=== PATIENT | male | born 1950 | race Caucasian/White ===

== ENCOUNTER 2017-03-08 09:26 | Outpatient (RCR) | payer MEDICARE, OTHER ==
[~2017-03-08 09:26] MED LIST: ACIPHEX; ASP81CT PO; ATR20T PO; HYDROCHLORATHIAZIDE; TRHC5025; TRIAMTERENE
--- NOTE | 2017-03-08 11:11 | Diagnostic Imaging Report ---
EXAM: KUB. INDICATION: Stones. COMPARISON: 02/22/2016. FINDINGS: There are bilateral flank calcifications up to 7 mm on the right and up to 5 mm on the left side suggestive of kidney stones. Pelvic calcifications are likely phleboliths. A moderate amount of fecal material is seen in the colon. Surgical clips in the upright abdomen seen. IMPRESSION: Bilateral flank calcifications may relate to stones. Dictated by: Dictated on workstation # [id number]
[2017-03-18 20:39] LABS: STONE RISK AMMONIUM 30 mEq/24hr (14-62); STONE RISK BRUSHITE 1.68 (< 2.00); STONE RISK CA OXALATE 0.72 (< 2.00); STONE RISK CALCIUM 96 mg/day (< 250); STONE RISK CITRATE 464 mg/day (> 320); STONE RISK CREATININE 1339 mg/day (800-2000); STONE RISK MAGNESIUM 110 mg/day (> 60); STONE RISK OXALATE 28 mg/day (< 45); STONE RISK PH 6.8 (5.5-7.0); STONE RISK PHOSPHOROUS 911 mg/day (< 1100); STONE RISK POTASSIUM 40 mEq/24hr (19-135); STONE RISK SODIUM 144 mEq/24hr (< 200); STONE RISK SODIUM URATES 1.73 (< 2.00); STONE RISK STRUVITE 7.32 (< 75.00); STONE RISK SULFITE 10 mmol/day (< 30); STONE RISK TOTAL VOLUME 1.84 L/day (> 2.00); STONE RISK URIC ACID 475 mg/day (< 700)
[2017-03-19 07:23] LABS: STONE RISK PATIENT CONDITION Low urine volume
[2017-03-25] MEDS ORDERED: TRIA1CAP4 PO (09:49)
[2017-03-26] MEDS ORDERED: NITR-68 PO (09:33)
[2017-03-26] MEDS ORDERED: TAMS0.4C98 PO (09:33)
[2017-03-26] MEDS ORDERED: HYDR-3874 PO (09:33)
== END 2017-06-06 | disposition home or self-care (01) ==
LOC: RAD 09:26
PROVIDERS: ATTEND Urology
DX: N20.0 Calculus of kidney (principal)
CPT/HCPCS: 36415; 74000; 82140; 82340; 82507; 82570; 83735; 83945; 83986; 84105; 84133; 84300; 84392; 84560

== ENCOUNTER 2017-03-25 05:35 | Outpatient (CLI) | payer MEDICARE, OTHER ==
[~2017-03-25] VITALS: Ht 180.3 cm; Wt 79.4 kg
[2017-03-25] MEDS ORDERED: TRIA1CAP4 PO (09:49)
[2017-03-26] MEDS ORDERED: NITR-68 PO (09:33)
[2017-03-26] MEDS ORDERED: TAMS0.4C98 PO (09:33)
[2017-03-26] MEDS ORDERED: HYDR-3874 PO (09:33)
== END 2017-03-25 09:52 ==
LOC: PREOP 05:35
PROVIDERS: ATTEND Urology
DX: Z01.818 Encounter for other preprocedural examination (principal); N20.0 Calculus of kidney

== ENCOUNTER 2017-03-26 05:57 | Day surgery (SDC) | payer MEDICARE, OTHER ==
[~2017-03-26] VITALS: Ht 180.3 cm; Wt 79.4 kg
[~2017-03-26 05:57] MED LIST changes: +TRIA1CAP4 PO
[2017-03-26] MEDS ORDERED: LEVOFLOXACIN 250 MG/50 ML IVPB 50 ML ONE (06:12)
[2017-03-26] MEDS ORDERED: LACTATED RINGERS 1,000 ML IV PRN (06:20)
[2017-03-26 06:26] VITALS: BP 138/86
[2017-03-26] MEDS ORDERED: LIDOCAINE PF 2% 10 ML (XYLOCAINE) AMP ONE (06:29)
[2017-03-26] MEDS ORDERED: LIDOCAINE JELLY 2% (XYLOCAINE) 5 ML TUBE ONE (06:29)
[2017-03-26] MEDS ORDERED: ROCURONIUM 50 MG/5 ML (ZEMURON) VIAL IV ONE (06:29)
[2017-03-26] MEDS ORDERED: proPOfol 200 MG/20 ML (DIPRIVAN) VIAL IV ONE (06:29)
[2017-03-26] MEDS ORDERED: MIDAZOLAM 2 MG/2 ML (VERSED) VIAL ONE (06:30)
[2017-03-26] MEDS ORDERED: FAMOTIDINE 20MG/2ML IV (PEPCID) IV ONE (06:30)
[2017-03-26] MEDS ORDERED: fentaNYL INJECTION 100 MCG/2 ML AMP ONE (06:30)
[2017-03-26] MEDS ORDERED: ONDANSETRON 4 MG/2 ML (SDV) Z0FRAN IV ONE (06:30)
--- NOTE | 2017-03-26 07:00 | Progress Note-Pre Operative ---
Pre-Operative Progress Note H&P Reviewed The H&P was reviewed, patient examined and no changes noted. Date H&P Reviewed: March 26, 2017 Time H&P Reviewed: 07:00 Pre-Operative Diagnosis: bilateral renal stones KATLYN TANNER MD March 26, 2017 7:00 am
--- NOTE | 2017-03-26 07:02 | Progress Note-Post Operative ---
Post-Operative Progess Note Surgeon (s)/Teacher Industrial Arts (s) Surgeon KATLYN TANNER MD Teacher Industrial Arts: N/A Pre-Operative Diagnosis bilateral renal stones Post-Operative Diagnosis SAME Procedure & Operative Findings Date of Procedure 03/26/17 Procedure Preformed/Findings RT ESWL Anesthesia Type GENERAL Estimated Blood Loss Estimated blood loss (mL): N/A Specimens/Packing Specimens Removed N/A Packing: N/A KATLYN TANNER MD March 26, 2017 7:02 am
--- NOTE | 2017-03-26 07:03 | Discharge Inst-Urology ---
Discharge Inst-Urology Discharge Medications New, Converted, or Re-newed RX: RX on Chart Patient Instructions/Follow Up Plan Please make appointment to been seen in office Sunday 04/08, KUB prior to it KUB on way home Post ESWL instructions Increase oral fluids for 48 hours and then as needed. Diet and Activity as tolerated. If questions or concerns contact your physician Or seek help at emergency department. KATLYN TANNER MD March 26, 2017 7:03 am
[2017-03-26] MEDS ORDERED: LEVOFLOXACIN 250 MG/D5W 50 ML (PRE-MIX) IV ONE (07:15)
[2017-03-26] MEDS ORDERED: CATHETER FLUSH 10 ML SYR IV PRN (07:15)
--- NOTE | 2017-03-26 07:25 | Diagnostic Imaging Report ---
INDICATION: Renal calculi. COMPARISON: 03/08/2017. FINDINGS: Bilateral ureteral calculi are unchanged. The largest on the right again measures approximately 6 mm. There are 3 in the region of the left renal fossa, each measuring approximately 4 mm in size. No evidence of ureteral calculi. Stable pelvic phleboliths. Nonobstructive bowel gas pattern and small volume of colonic stool. Lung bases are clear. IMPRESSION: Compared to the abdominal radiograph of 03/08/2017, unchanged bilateral renal calculi. Dictated by: Dictated on workstation # [id number]
[2017-03-26] MEDS ORDERED: morphine INJ 10 MG/ML 1ML (SYR OR VIAL) IVP PRN (08:15)
[2017-03-26] MEDS ORDERED: MEPERIDINE (DEMEROL) INJ 50 MG/ML IVP PRN (08:15)
[2017-03-26] MEDS ORDERED: ONDANSETRON 4 MG/2 ML (SDV) Z0FRAN IVP PRN (08:15)
[2017-03-26] MEDS ORDERED: SEVOFLURANE (ULTANE) 15 ML INHAL SOLN ONE (08:27)
[2017-03-26] MEDS ORDERED: KETOROLAC 30 MG/ML VIAL ONE (08:27)
[2017-03-26] MEDS ORDERED: FUROSEMIDE 40 MG/4 ML INJ (LASIX) ONE (08:27)
[2017-03-26 09:00] VITALS: BP 132/78
[2017-03-26 09:30] VITALS: BP 119/76
--- NOTE | 2017-03-26 09:30 | OPERATIVE REPORT ---
DATE OF SERVICE: 03/26/2017 PREOPERATIVE DIAGNOSIS: Bilateral renal stones. POSTOPERATIVE DIAGNOSIS: Bilateral renal stones. OPERATION PERFORMED: Right extracorporeal shockwave lithotripsy. SURGEON: Vik Tanner MD ANESTHESIA: General. COMPLICATIONS: None. PROCEDURE: Under satisfactory anesthesia, the patient was placed in the supine position on the ESWL table. Right renal stone was localized. Shocks were delivered at of 5. A total of 2000 shocks completely the stone, it was not visible any more. The patient received 30 mg of Toradol and 40 mg of Lasix IV at the end of the procedure. He tolerated the procedure and anesthesia well and was taken to the recovery room in stable condition. Job ID: [id number] DocumentID: [id number] Dictated Date: 03/26/2017 07:53:58 Governor Assembler Date: 03/26/2017 09:29:47 Dictated By: VIK TANNER MD
[2017-03-26] MEDS ORDERED: NITR-68 PO (09:33)
[2017-03-26] MEDS ORDERED: HYDR-3874 PO (09:33)
[2017-03-26] MEDS ORDERED: TAMS0.4C98 PO (09:33)
[2017-03-26 10:00] VITALS: BP 114/77
[2017-03-26 10:15] VITALS: BP 114/77
--- NOTE | 2017-03-26 11:42 | Diagnostic Imaging Report ---
EXAMINATION: KUB. INDICATION: Post lithotripsy. Bilateral kidney stones. FINDINGS: There is a fragmented stone seen in the right kidney with inseparable fragments measuring up to 1 cm in size. The left kidney calcifications are again noted up to 4 mm in size. There is no definite ureteric stone. Pelvic calcifications are likely phleboliths. There are surgical clips in the upper right side of the abdomen. IMPRESSION: Bilateral kidney stones. Dictated by: Dictated on workstation # [id number]
== END 2017-03-26 10:15 | disposition home or self-care (01) ==
LOC: SDC 05:57
PROVIDERS: ATTEND Urology
DX: N20.0 Calculus of kidney (principal); E78.00 Pure hypercholesterolemia, unspecified; K21.9 Gastro-esophageal reflux disease without esophagitis; Z79.899 Other long term (current) drug therapy
CPT/HCPCS: 74000; 87081

== ENCOUNTER → 2017-04-08 | Outpatient (CLI) | payer MEDICARE, OTHER ==
[~2017-04-08] MED LIST changes: +HYDR-3874 PO; +NITR-68 PO; +TAMS0.4C98 PO
--- NOTE | 2017-04-08 13:38 | Diagnostic Imaging Report ---
KUB. INDICATION: Bilateral renal stones. FINDINGS: Again seen multiple calcifications in the left flank up to 5 mm in size compatible with left kidney stones. The previously seen 1 cm stone fragment in the right kidney is not seen at this time with the remaining 3 mm stone in the right kidney. No definite right ureteric stone is identified. Pelvic calcifications seen are likely phleboliths. IMPRESSION: Bilateral kidney stones. Dictated by: Dictated on workstation # [id number]
== END ==
LOC: RAD 10:33
PROVIDERS: ATTEND Urology
DX: N20.0 Calculus of kidney (principal); Z98.890 Other specified postprocedural states
CPT/HCPCS: 74000

== ENCOUNTER 2017-06-11 05:41 | Outpatient (CLI) | payer MEDICARE, OTHER ==
[~2017-06-11] VITALS: Ht 180.3 cm; Wt 79.4 kg
== END 2017-06-11 13:15 ==
LOC: PREOP 05:41
PROVIDERS: ATTEND Urology
DX: Z01.818 Encounter for other preprocedural examination (principal); K02.9 Dental caries, unspecified

== ENCOUNTER 2017-06-18 07:09 | Day surgery (SDC) | payer MEDICARE, OTHER ==
[~2017-06-18] VITALS: Ht 180.3 cm; Wt 79.4 kg
[2017-06-18] MEDS ORDERED: LEVOFLOXACIN 250 MG/50 ML IVPB 50 ML ONE (07:18)
[2017-06-18] MEDS ORDERED: CATHETER FLUSH 10 ML SYR IV PRN (07:45)
[2017-06-18] MEDS ORDERED: LEVOFLOXACIN 250 MG/D5W 50 ML (PRE-MIX) IV ONE (07:45)
[2017-06-18 07:54] VITALS: BP 142/83
[2017-06-18] MEDS ORDERED: ASPI-586 PO (07:57)
[2017-06-18] MEDS ORDERED: fentaNYL INJECTION 100 MCG/2 ML AMP ONE (08:19)
[2017-06-18] MEDS ORDERED: MIDAZOLAM 2 MG/2 ML (VERSED) VIAL ONE (08:19)
[2017-06-18] MEDS ORDERED: proPOfol 200 MG/20 ML (DIPRIVAN) VIAL IV ONE (08:19)
[2017-06-18] MEDS ORDERED: LACTATED RINGERS 1,000 ML IV PRN (08:21)
--- NOTE | 2017-06-18 08:22 | Diagnostic Imaging Report ---
Supine view of the abdomen. INDICATION: Stones. FINDINGS: There is a 5 mm and other smaller calcifications over the left flank probably in the left kidney. There are multiple pelvic calcifications likely related to phleboliths. One calcification measuring 1.5 mm is seen in the right side of the pelvis not present on 04/08/17 exam. This could correlate with right UVJ stone. Surgical clips in the upright abdomen seen. IMPRESSION: 1. Findings suggestive of left kidney stones. 2. A 1.5 mm calcification in the right side of the pelvis is new from the prior exam and may correlate with a right UVJ stone. Dictated by: Dictated on workstation # [id number]
--- NOTE | 2017-06-18 08:27 | Progress Note-Pre Operative ---
Pre-Operative Progress Note H&P Reviewed The H&P was reviewed, patient examined and no changes noted. Date Seen by Provider: Jun 18, 2017 Time Seen by Provider: 08:26 Date H&P Reviewed: Jun 18, 2017 Time H&P Reviewed: 08:27 Pre-Operative Diagnosis: LT RENAL STONES KATLYN TANNER MD Jun 18, 2017 8:27 am
[2017-06-18] MEDS ORDERED: SCOPOLAMINE 1.5 MG (TRANSDERM-SCOP) PATCH TOP ONE (08:30)
[2017-06-18] MEDS ORDERED: ONDANSETRON 4 MG/2 ML (SDV) Z0FRAN IV ONE (08:30)
[2017-06-18] MEDS ORDERED: FAMOTIDINE 20MG/2ML IV (PEPCID) IV ONE (08:30)
--- NOTE | 2017-06-18 09:29 | Progress Note-Post Operative ---
Post-Operative Progess Note Surgeon (s)/Director Of Materials (s) Surgeon KATLYN TANNER MD Director Of Materials: N/A Pre-Operative Diagnosis LT RENAL STONES Post-Operative Diagnosis SAME Procedure & Operative Findings Date of Procedure 06/18/17 Procedure Performed/Findings LT ESWL Anesthesia Type GENERAL Estimated Blood Loss Estimated blood loss (mL): N/A Specimens/Packing Specimens Removed N/A Packing: N/A KATLYN TANNER MD Jun 18, 2017 9:29 am
[2017-06-18] MEDS ORDERED: LACTATED RINGERS 2,000 ML IV ONE (09:32)
[2017-06-18] MEDS ORDERED: SEVOFLURANE (ULTANE) 15 ML INHAL SOLN ONE (09:32)
[2017-06-18] MEDS ORDERED: FUROSEMIDE 40 MG/4 ML INJ (LASIX) ONE (09:32)
--- NOTE | 2017-06-18 09:32 | Discharge Inst-Urology ---
Discharge Inst-Urology Discharge Medications New, Converted, or Re-newed RX: RX on Chart Patient Instructions/Follow Up Plan Please make appointment to been seen in office in 2 weeks. KUB prior to it Post ESWL instructions In 72hrs. if no bleeding may resume ASA Increase oral fluids for 48 hours and then as needed. Diet and Activity as tolerated. If questions or concerns contact your physician Or seek help at emergency department. KATLYN TANNER MD Jun 18, 2017 9:32 am
[2017-06-18 10:30] VITALS: BP 131/79
[2017-06-18] MEDS ORDERED: TAMS0.4C98 PO (10:51)
[2017-06-18] MEDS ORDERED: HYDR-3875 PO (10:51)
[2017-06-18] MEDS ORDERED: NITR-65 PO (10:51)
[2017-06-18 11:00] VITALS: BP 130/80
[2017-06-18 11:30] VITALS: BP 131/81
--- NOTE | 2017-06-18 11:36 | Diagnostic Imaging Report ---
Supine view of the abdomen. INDICATION: Renal stones. FINDINGS: There are multiple left flank calcifications in the left flank. They measure up to 5 mm in size. Multiple pelvic calcifications are seen, likely phleboliths. IMPRESSION: Multiple left flank calcifications, likely left kidney stones. Dictated by: Dictated on workstation # [id number]
[2017-06-18 12:00] VITALS: BP 131/81
--- NOTE | 2017-06-18 14:50 | OPERATIVE REPORT ---
PROCEDURE PHYSICIAN: KATLYN TANNER DATE OF PROCEDURE: 06/18/2017 PREOPERATIVE DIAGNOSIS: Left renal stones. POSTOPERATIVE DIAGNOSIS: Left renal stones. OPERATION: Left ESWL. SURGEON: Dr. Tanner. ANESTHESIA: General. COMPLICATIONS: None. PROCEDURE: Under satisfactory general anesthesia, the patient in supine position on the ESWL table, the left renal stone, not the small one, 5 mm was localized. Shocks were delivered KV of 5. A total of 2000 shocks completely fragmented the stone which was hard to see. The patient received 40 mg of Lasix and 30 mg of Toradol IV at the end of the procedure. He tolerated the procedure and anesthesia well and was sent to recovery room in stable condition. Job ID: [id number] Dictated Date: 06/18/2017 09:41:42 Locker Attendant Date: 06/18/2017 14:43:22 / mike
== END 2017-06-18 12:00 | disposition home or self-care (01) ==
LOC: SDC 07:09
PROVIDERS: ATTEND Urology
DX: N20.0 Calculus of kidney (principal); E78.00 Pure hypercholesterolemia, unspecified; K21.9 Gastro-esophageal reflux disease without esophagitis; Z79.899 Other long term (current) drug therapy
CPT/HCPCS: 74000; 87081

== ENCOUNTER → 2017-07-08 | Outpatient (CLI) | payer MEDICARE, OTHER ==
[~2017-07-08] MED LIST changes: +ASPI-586 PO; +HYDR-3875 PO; +NITR-65 PO
--- NOTE | 2017-07-08 12:36 | Diagnostic Imaging Report ---
INDICATION: Kidney stones. COMPARISON: 06/18/17. FINDINGS: Two views of the abdomen demonstrate multiple unchanged stones in the left kidney. The largest in the upper pole measures 5 mm. No stones are seen on the right nor in the ureter courses. No calculus is seen within urinary bladder. IMPRESSION: Stable left kidney stones. No interval change. Dictated by: Dictated on workstation # [id number]
== END ==
LOC: RAD 11:51
PROVIDERS: ATTEND Urology
DX: N20.0 Calculus of kidney (principal)
CPT/HCPCS: 74000

== ENCOUNTER 2017-07-25 10:55 | Emergency (ER) | payer MEDICARE, OTHER ==
[~2017-07-25] VITALS: Ht 180.3 cm; Wt 79.4 kg
[2017-07-25] MEDS ORDERED: NS IV 1000 ML 1,000 ML IV ONE (12:15)
[2017-07-25 12:21] LABS: BASOPHILS % (AUTO) 0 % (0-10); EOSINOPHILS # (AUTO) 0.1 10^3/uL (0.0-0.3); EOSINOPHILS % (AUTO) 2 % (0-10); LYMPHOCYTES # (AUTO) 1.2 X 10^3 (1.0-4.0); LYMPHOCYTES % (AUTO) 21 % (12-44); MEAN CORPUSCULAR HEMOGLOBIN 28 PG (25-34); MEAN CORPUSCULAR HGB CONC 33 G/DL (32-36); MEAN CORPUSCULAR VOLUME 85 FL (80-99); MEAN PLATELET VOLUME 10.7 FL (7.4-10.4); MONOCYTES # (AUTO) 0.4 X 10^3 (0.0-1.0); MONOCYTES % (AUTO) 7 % (0-12); NEUTROPHILS # (AUTO) 3.9 X 10^3 (1.8-7.8); NEUTROPHILS % (AUTO) 70 % (42-75); PLATELET COUNT 182 10^3/uL (130-400); RED BLOOD COUNT 5.46 10^6/uL (4.35-5.85); RED CELL DISTRIBUTION WIDTH 14.3 % (10.0-14.5); WHITE BLOOD COUNT 5.6 10^3/uL (4.3-11.0)
[2017-07-25 12:22] LABS: BILIRUBIN,URINE NEGATIVE (NEGATIVE); KETONES,URINE NEGATIVE (NEGATIVE); LEUKOCYTE ESTERASE ,URINE NEGATIVE (NEGATIVE); NITRITE,URINE NEGATIVE (NEGATIVE); PH,URINE 6 (5-9); PROTEIN,URINE 1+ (NEGATIVE); UROBILINOGEN,URINE NORMAL (NORMAL)
[2017-07-25 12:31] LABS: SQUAMOUS EPITHELIAL CELL,UR RARE /HPF
[2017-07-25 12:38] LABS: ALANINE AMINOTRANSFERASE 22 U/L (0-55); ALBUMIN 4.4 GM/DL (3.2-4.5); ANION GAP 11 MMOL/L (5-14); ASPARTATE AMINO TRANSFERASE 24 U/L (5-34); BILIRUBIN,TOTAL 0.8 MG/DL (0.1-1.0); BLOOD UREA NITROGEN 16 MG/DL (7-18); BUN/CREATININE RATIO 15; CALCIUM 9.7 MG/DL (8.5-10.1); CARBON DIOXIDE 24 MMOL/L (21-32); CHLORIDE 105 MMOL/L (98-107); CREATININE SERUM 1.06 MG/DL (0.60-1.30); GFR ESTIMATED > 60; GLUCOSE 103 MG/DL (70-105); POTASSIUM 3.7 MMOL/L (3.6-5.0); SODIUM 140 MMOL/L (135-145); TOTAL PROTEIN 7.4 GM/DL (6.4-8.2)
[2017-07-25] MEDS ORDERED: morphine INJ 10 MG/ML 1ML (SYR OR VIAL) IVP STA (12:38)
--- NOTE | 2017-07-25 13:11 | Diagnostic Imaging Report ---
PROCEDURE: CT urinary tract, rule out kidney stone. TECHNIQUE: Multiple contiguous axial images were obtained through the abdomen and pelvis without the use of intravenous contrast. INDICATION: Left flank pain. COMPARISON: None available. FINDINGS: Evaluation of the abdominal viscera is mildly limited without contrast. Lower chest: The lung bases are clear. No pericardial or pleural effusion. Peritoneum: No free intraperitoneal air or fluid. Liver and biliary system: Unenhanced liver is normal. Status post cholecystectomy. No biliary duct dilatation. Spleen and Pancreas: Spleen is normal. Unenhanced pancreas is grossly normal. Adrenals: Normal. tract: There is a 4-mm calculus at the left UVJ which results in very mild left hydroureter distally; however, there is no left hydronephrosis or proximal hydroureter. Bilateral nonobstructing renal calculi are present. The largest is on the left measuring 5 mm. The largest on the right measures 3 mm. Urinary bladder is normally distended without wall thickening. Prostate is borderline enlarged measuring 5 cm transversely. GI tract: Stomach is partially distended with fluid and food debris. There is no gastric wall thickening. No bowel obstruction. No pericolonic inflammatory changes. Normal appendix. Vasculature and Lymph nodes: Normal-caliber aorta with multifocal atherosclerotic calcified plaque. No abdominal or pelvic lymphadenopathy. Musculoskeletal: No concerning osseous lesion. IMPRESSION: 1. There is a 4-mm calculus at the left UVJ which likely is due to a recently passed or nearly passed left-sided stone. This results in minimal left hydroureter distally but no hydronephrosis. 2. Bilateral nonobstructing renal calculi measuring up to 5 mm. 3. Borderline prostatomegaly. Dictated by: Dictated on workstation # [id number]
--- NOTE | 2017-07-25 13:30 | ED GU-Male ---
General Chief Complaint: Abdominal/GI Problems Stated Complaint: POSS KID STONES Nursing Triage Note: pt reports pain in l side and pelvic area x 3 days. pt also reports pressure/fullness in lower abdomen and states he has only been able to urinate a little amount at a time. History of Present Illness Time seen by provider: 12:15 Initial Comments Evaluation for left flank pain. The patient has long-standing history of renal calculi. He was treated earlier in June by Dr. Tanner, patient reports he is having difficulty urinating. He is going small amounts frequently. Timing/Duration: intermittent Severity/Quality: moderate Location: suprapubic, left flank Radiation: none Activities at Onset: none Prior Genitourinary Problems: similar symptoms Modifying Factors: Improves With Resting, Improves With Urinating Associated Symptoms: denies symptoms Allergies and Home Medications Allergies Coded Allergies: Sulfa (Sulfonamide Antibiotics) (Verified Allergy, Unknown, 11/27/06) Home Medications Atorvastatin 20 Mg Tablet, 20 MG PO DAILY, (Reported) Hydrocodone/Acetaminophen 1 Each Tablet, 1-2 TAB PO Q4H PRN for PAIN-MODERATE, # 30 Prescribed by: BRADLEY JEAN on 06/18/17 1051 Nitrofurantoin Monohyd/M-Cryst 100 Mg Capsule, 1 TAB PO BID, #14 Prescribed by: BRADLEY JEAN on 06/18/17 1051 Tamsulosin HCl 0.4 Mg Cap, 0.4 MG PO DAILY, #14 Prescribed by: BRADLEY JEAN on 06/18/17 1051 Triamterene/Hydrochlorothiazid 1 Each Capsule, 1 EACH PO DAILY, (Reported) Constitutional: no symptoms reported, see HPI Gastrointestinal: see HPI, abdominal pain (suprapubic) Genitourinary: see HPI, dysuria, flank pain All Other Systemes Reviewed Negative Unless Noted: Yes Past Ehqlfto-Ulbunv-Tcscrf Hx Patient Social History Alcohol Use: Denies Use Recreational Drug Use: No Smoking Status: Never a Smoker Recent Foreign Travel: No Contact w/Someone Who Travel: No Recent Infectious Disease Expo: No Recent Hopitalizations: No Physical Abuse: No Sexual Abuse: No Mistreated: No Fear: No Seasonal Allergies Seasonal Allergies: Yes Surgeries History of Surgeries: Yes ( RIGHT WRIST, R CTR, R RCR, RIGHT ELBOW STONE BASkET) Surgeries: Gallbladder, Tonsillectomy Respiratory History of Respiratory Disorde: No Cardiovascular History of Cardiac Disorders: Yes (family hx of heart dz) Cardiac Disorders: Hypertension Neurological History of Neurological Disord: No Reproductive System Hx Reproductive Disorders: No Genitourinary Genitourinary Disorders: Kidney Stones Gastrointestinal History of Gastrointestinal Di: No Musculoskeletal History of Musculoskeletal Dis: No Endocrine History of Endocrine Disorders: No Cancer History of Cancer: No Psychosocial History of Psychiatric Problem: No Suicide Risk Score: 0 Integumentary History of Skin or Integumenta: No Blood Transfusions History of Blood Disorders: No Reviewed Nursing Assessment Reviewed/Agree w Nursing PMH: Yes Physical Exam Vital Signs Vital Sign - Last 12Hours 07/25/17 11:31 Temp 97.5 Pulse 84 Resp 18 B/P (MAP) 131/94 Pulse Ox 99 Capillary Refill : Less Than 3 Seconds General Appearance: WD/WN, no apparent distress Cardiovascular: normal peripheral pulses, regular rate, rhythm, no murmur Respiratory: chest non-tender, lungs clear, normal breath sounds Gastrointestinal: normal bowel sounds, soft, tenderness (suprapubic) Back: normal inspection, no vertebral tenderness, CVA tenderness (L) Extremities: normal range of motion, non-tender, normal inspection, normal capillary refill Neurologic/Psychiatric: no motor/sensory deficits, alert, normal mood/affect, oriented x 3 Skin: normal color, warm/dry Progress/Results/Core Measures Results/Orders Lab Results Laboratory Tests Test 07/25/17 11:24 07/25/17 11:42 Range/Units White Blood Count 5.6 4.3-11.0 10^3/uL Red Blood Count 5.46 4.35-5.85 10^6/uL Hemoglobin 15.5 13.3-17.7 G/DL Hematocrit 46 40-54 % Mean Corpuscular Volume 85 80-99 FL Mean Corpuscular Hemoglobin 28 25-34 PG Mean Corpuscular Hemoglobin Concent 33 32-36 G/DL Red Cell Distribution Width 14.3 10.0-14.5 % Platelet Count 182 130-400 10^3/uL Mean Platelet Volume 10.7 H 7.4-10.4 FL Neutrophils (%) (Auto) 70 42-75 % Lymphocytes (%) (Auto) 21 12-44 % Monocytes (%) (Auto) 7 0-12 % Eosinophils (%) (Auto) 2 0-10 % Basophils (%) (Auto) 0 0-10 % Neutrophils # (Auto) 3.9 1.8-7.8 X 10^3 Lymphocytes # (Auto) 1.2 1.0-4.0 X 10^3 Monocytes # (Auto) 0.4 0.0-1.0 X 10^3 Eosinophils # (Auto) 0.1 0.0-0.3 10^3/uL Basophils # (Auto) 0.0 0.0-0.1 10^3/uL Sodium Level 140 135-145 MMOL/L Potassium Level 3.7 3.6-5.0 MMOL/L Chloride Level 105 98-107 MMOL/L Carbon Dioxide Level 24 21-32 MMOL/L Anion Gap 11 5-14 MMOL/L Blood Urea Nitrogen 16 7-18 MG/DL Creatinine 1.06 0.60-1.30 MG/DL Estimat Glomerular Filtration Rate > 60 BUN/Creatinine Ratio 15 Glucose Level 103 70-105 MG/DL Calcium Level 9.7 8.5-10.1 MG/DL Total Bilirubin 0.8 0.1-1.0 MG/DL Aspartate Amino Transf (AST/SGOT) 24 5-34 U/L Alanine Aminotransferase (ALT/SGPT) 22 0-55 U/L Alkaline Phosphatase 96 40-136 U/L Total Protein 7.4 6.4-8.2 GM/DL Albumin 4.4 3.2-4.5 GM/DL Urine Color YELLOW Urine Clarity CLEAR Urine pH 6 5-9 Urine Specific Burns 1.020 1.016-1.022 Urine Protein 1+ H NEGATIVE Urine Glucose (UA) NEGATIVE NEGATIVE Urine Ketones NEGATIVE NEGATIVE Urine Nitrite NEGATIVE NEGATIVE Urine Bilirubin NEGATIVE NEGATIVE Urine Urobilinogen NORMAL NORMAL MG/DL Urine Leukocyte Esterase NEGATIVE NEGATIVE Urine RBC (Auto) 1+ H NEGATIVE Urine RBC RARE /HPF Urine WBC NONE /HPF Urine Squamous Epithelial Cells RARE /HPF Urine Crystals NONE /LPF Urine Bacteria NEGATIVE /HPF Urine Casts NONE /LPF Urine Mucus SMALL H /LPF Urine Culture Indicated NO My Orders Orders - JL LOPEZ Cbc With Automated Diff (07/25/17 12:15) Comprehensive Metabolic Panel (07/25/17 12:15) Ua Culture If Indicated (07/25/17 12:15) Saline Lock/Iv-Start (07/25/17 12:15) Ns Iv 1000 Ml (Sodium Chloride 0.9%) (07/25/17 12:15) Ct Abd/Pelvis Wo(Kidney Stone) (07/25/17 12:37) Morphine Injection (Morphine Injection (07/25/17 12:38) Ketorolac Injection (Toradol Injection) (07/25/17 13:36) Abdomen/Kub 1view (07/25/17 13:36) Medications Given in ED Vital Signs/I&O Vital Sign - Last 12Hours 07/25/17 07/25/17 11:31 14:13 Temp 97.5 Pulse 84 90 Resp 18 18 B/P (MAP) 131/94 Pulse Ox 99 99 Blood Pressure Mean: 106 Progress Note : Time: 12:15 Progress Note Initial evaluation completed. Will reevaluate after lab and morphine 5 mg IV pain control. 1310 patient reports slight improvement in his symptoms. CT showed a 4 mm stone in the left UVJ. No hydronephrosis. No obstructing stone. [address] Tanner, recommended Toradol and KUB he will follow him tomorrow morning in the office. 1400 patient reports symptoms are improving, discharge planning completed. Diagnostic Imaging Diagonstic Imaging: CT Plain Films/CT/US/NM/MRI: abdomen, pelvis Comments NAME: Tariq CURRY [facility] REC#: [id number] PT STATUS: REG ER : 1950 PHYSICIAN: JL LOPEZ ADMIT DATE: 07/25/17/ER Signed Date of Exam: 07/25/17 CT ABD/PELVIS WO(KIDNEY STONE) PROCEDURE: CT urinary tract, rule out kidney stone. TECHNIQUE: Multiple contiguous axial images were obtained through the abdomen and pelvis without the use of intravenous contrast. INDICATION: Left flank pain. COMPARISON: None available. FINDINGS: Evaluation of the abdominal viscera is mildly limited without contrast. Lower chest: The lung bases are clear. No pericardial or pleural effusion. Peritoneum: No free intraperitoneal air or fluid. Liver and biliary system: Unenhanced liver is normal. Status post cholecystectomy. No biliary duct dilatation. Spleen and Pancreas: Spleen is normal. Unenhanced pancreas is grossly normal. Adrenals: Normal. tract: There is a 4-mm calculus at the left UVJ which results in very mild left hydroureter distally; however, there is no left hydronephrosis or proximal hydroureter. Bilateral nonobstructing renal calculi are present. The largest is on the left measuring 5 mm. The largest on the right measures 3 mm. Urinary bladder is normally distended without wall thickening. Prostate is borderline enlarged measuring 5 cm transversely. GI tract: Stomach is partially distended with fluid and food debris. There is no gastric wall thickening. No bowel obstruction. No pericolonic inflammatory changes. Normal appendix. Vasculature and Lymph nodes: Normal-caliber aorta with multifocal atherosclerotic calcified plaque. No abdominal or pelvic lymphadenopathy. Musculoskeletal: No concerning osseous lesion. IMPRESSION: 1. There is a 4-mm calculus at the left UVJ which likely is due to a recently passed or nearly passed left-sided stone. This results in minimal left hydroureter distally but no hydronephrosis. 2. Bilateral nonobstructing renal calculi measuring up to 5 mm. 3. Borderline prostatomegaly. Dictated by: Dictated on workstation # [id number] Dict: 07/25/17 1302 Trans: 07/25/17 1317 Interpreted by: MANJEET MIDDLETON MD Electronically signed by: MANJEET MIDDLETON MD 07/25/17 1317 Reviewed: Reviewed by Me Diagonstic Imaging: Xray Plain Films/CT/US/NM/MRI: abdomen Comments NAME: Tariq CURRY [facility] REC#: [id number] PT STATUS: REG ER : 1950 PHYSICIAN: JL LOPEZP ADMIT DATE: 07/25/17/ER Draft Date of Exam:07/25/17 ABDOMEN/KUB 1VIEW INDICATION: Nephrolithiasis. FINDINGS: 3 stones projecting over the mid/ upper third of the left kidney, the largest measuring 4.5 mm. The calculus did not appear changed from exam 07/08/2017. There are pelvic phleboliths projecting in unchanged alignment. No bowel obstruction. IMPRESSION: Left renal stones unchanged. Pelvic phleboliths not obviously changed but could obscure distal ureteral stone. Dictated on workstation # [id number] Dict: 07/25/17 1351 Trans: 07/25/17 1357 ARMANI [id number] Interpreted by: JORI HEARD Electronically signed by: Reviewed: Reviewed by Me Departure Impression Impression: Primary Impression: Renal calculus, left Disposition: 01 HOME, SELF-CARE Condition: Stable Departure-Patient Inst. Decision time for Depature: 13:30 Referrals: CONSTANTINO KAPADIA DO (PCP/Family) Primary Care Physician Patient Instructions: Kidney Stones (DC) Add. Discharge Instructions: Follow up with Dr. Tanner 11:15 am Sat 8. Use pain medicine that you have at home from Dr. Larson as needed. Increase water intake, and empty bladder frequently. Return to emergency Department if pain increases, temperature greater than 101 , inability to urinate or new problems. All discharge instructions reviewed with patient and/or family. Voiced understanding. Copy Copies To 1: KATLYN TANNER MD, AMY ARNP Jul 25, 2017 13:30
[2017-07-25] MEDS ORDERED: KETOROLAC 30 MG/ML VIAL IVP STA (13:36)
--- NOTE | 2017-07-25 13:58 | Diagnostic Imaging Report ---
INDICATION: Nephrolithiasis. FINDINGS: 3 stones projecting over the mid/ upper third of the left kidney, the largest measuring 4.5 mm. The calculus did not appear changed from exam 07/08/2017. There are pelvic phleboliths projecting in unchanged alignment. No bowel obstruction. IMPRESSION: Left renal stones unchanged. Pelvic phleboliths not obviously changed but could obscure distal ureteral stone. Dictated by: Dictated on workstation # [id number]
[2017-07-25 14:13] VITALS: BP 124/70
== END 2017-07-25 14:13 | disposition home or self-care (01) ==
LOC: EDUNIT# 10:55 → ER 10:57
DX: N20.0 Calculus of kidney (principal); I10 Essential (primary) hypertension; Z90.89 Acquired absence of other organs
CPT/HCPCS: 36415; 74000; 74176; 80053; 81000; 85025; 96361; 96374; 96375

== ENCOUNTER 2019-04-01 10:47 | Outpatient (RCR) | payer MEDICARE, OTHER ==
--- NOTE | 2019-02-12 15:47 | Diagnostic Imaging Report ---
INDICATION: History of kidney stones. Followup. COMPARISON: 07/25/2017 FINDINGS: Two supine radiographic views of the abdomen were obtained. Since the previous exam, there has been interval decrease in left-sided nephrolithiasis. There is suggestion of residual punctate 2 mm left renal calculus. No other unexpected extraosseous calcifications or radiopaque foreign bodies are seen. Small bowel loops are nondistended. There is no large collection of free intraperitoneal air. Bony structures show no gross acute abnormalities. IMPRESSION: 1. Interval improved left-sided nephrolithiasis. 2. No evidence of obstruction. Dictated by: Dictated on workstation # [id number]
[~2019-04-01 10:47] MED LIST changes: +HYDR-3870 PO; -HYDR-3874 PO
== END 2019-05-13 | disposition home or self-care (01) ==
LOC: RAD 10:47
PROVIDERS: ATTEND Urology
DX: N20.0 Calculus of kidney (principal)
CPT/HCPCS: 36415; 74018; 82140; 82340; 82507; 82570; 83735; 83945; 83986; 84105; 84133; 84300; 84392; 84560

== ENCOUNTER → 2021-03-02 | Outpatient (CLI) | payer MEDICARE, OTHER ==
[~2021-03-02] MED LIST changes: -TAMS0.4C98 PO; +TMSL.4C PO
--- NOTE | 2021-03-02 10:47 | Diagnostic Imaging Report ---
INDICATION: History of renal calculi. COMPARISON: 02/12/2019 FINDINGS: Single supine radiographic view of the abdomen was obtained. Small bowel loops are nondistended. Punctate extraosseous consultations are noted projecting over the right upper abdominal quadrant. Larger of these measures 3 mm. No distinct calculi are seen on the left. No unexpected radiopaque foreign bodies are identified. There is no large collection of free intraperitoneal air. Osseous structures show no gross acute abnormalities. IMPRESSION:. Extraosseous calcifications on the right suspected to represent renal calculi. Dictated by: Dictated on workstation # [id number]
== END ==
LOC: RAD 10:09
PROVIDERS: ATTEND Urology
DX: Z87.442 Personal history of urinary calculi (principal)
CPT/HCPCS: 74018